=== PATIENT | male | born 1940 | race Caucasian/White ===

== ENCOUNTER 2018-07-27 00:38 | Emergency (ER) | payer MEDICARE ==
[~2018-07-27] VITALS: Ht 180.3 cm; Wt 99.8 kg
[~2018-07-27 00:38] MED LIST: ACET-2165 PO; ASA81 PO; CIPR-260 IVPB; PRO40 PO; ROCPM1 IV; TAMS-11 PO
[2018-07-27 00:40] VITALS: BP_SYST 137
[2018-07-27] MEDS ORDERED: IPRATROPIUM/ALBUTEROL SULFATE 3 ML AMPUL.NEB INH ONE (01:15)
[2018-07-27 01:17] LABS: BASOPHILS # (AUTO) 0.2 K/uL (0.0-0.2); BASOPHILS % (AUTO) 1.3 % (0.0-2.0); EOSINOPHILS # (AUTO) 0.1 K/uL (0.0-0.4); EOSINOPHILS % (AUTO) 0.5 % (0.0-4.0); LYMPHOCYTES # (AUTO) 0.3 K/uL (1.0-5.5); LYMPHOCYTES % (AUTO) 2.7 % (20.5-51.5); MEAN CORPUSCULAR HEMOGLOBIN 30 pg (27-31); MEAN CORPUSCULAR HGB CONC 33 % (32-36); MEAN CORPUSCULAR VOLUME 93 fL (79.0-98.0); MONOCYTES # (AUTO) 0.2 K/uL (0.0-1.0); MONOCYTES % (AUTO) 1.8 % (1.7-9.3); NEUTROPHILS # (AUTO) 11.9 K/uL (1.8-7.7); NEUTROPHILS % (AUTO) 93.7 % (40.0-70.0); PLATELET COUNT (AUTO) 181 K/uL (130-430); RED BLOOD CELL COUNT(AUTO) 4.95 MIL/uL (4.2-6.2); RED CELL DISTRIBUTION WIDTH 12.8 % (9.0-15.0); WHITE BLOOD COUNT (AUTO) 12.7 K/uL (4.8-10.8)
[2018-07-27 01:26] LABS: ANION GAP 13 (5-15); CALCIUM 8.7 mg/dL (8.4-11.0); CHLORIDE 104 mmol/L (98-107); CREATININE 1.31 mg/dL (0.55-1.30); GLUCOSE 148 mg/dL (70-99); POTASSIUM 3.5 mmol/L (3.5-5.1); SODIUM SERUM 140 mmol/L (136-145); UREA NITROGEN, BLOOD 14 mg/dL (8-21)
[2018-07-27 01:32] LABS: ALANINE AMINOTRANSFERASE 30 U/L (12-78); ALBUMIN 3.7 g/dL (3.4-4.8); ASPARTATE AMINOTRANSFERASE 22 U/L (10-37); TOTAL BILIRUBIN 1.9 mg/dL (0.0-1.0)
[2018-07-27] MEDS ORDERED: NACL 0.9% 1,000 ML IV ONE (01:45)
[2018-07-27] MEDS ORDERED: methylPREDNISolone SOD SUCC/PF 62.5 MG/ML VIAL IVP ONE (01:45)
[2018-07-27] MEDS ORDERED: LEVOFLOXACIN 500 MG TABLET PO ONE (01:45)
[2018-07-27 02:23] VITALS: BP_SYST 133
== END 2018-07-27 02:23 | disposition home or self-care (01) ==
LOC: SED 00:38
DX: J44.9 Chronic obstructive pulmonary disease, unspecified (principal); N17.9 Acute kidney failure, unspecified; Z79.899 Other long term (current) drug therapy; Z88.2 Allergy status to sulfonamides; Z87.891 Personal history of nicotine dependence
CPT/HCPCS: 36415; 71045; 80053; 83880; 85025; 94640; 96374; 99285; J2930; J7030; J7620

== ENCOUNTER 2019-04-02 20:50 | Emergency (ER) | payer MEDICARE ==
[~2019-04-02] VITALS: Ht 177.8 cm; Wt 90.7 kg
[2019-04-02 21:06] VITALS: BP_SYST 150
--- NOTE | 2019-04-02 21:10 | NUR ---
Patient to ER bed 04 for evaluation. Side rails up. Report given to Magdaleno BROWN.
--- NOTE | 2019-04-02 21:35 | NUR ---
Pt BIB to ED C/O sudden onset of epistaxis of left nostril that began at about 7:30PM today. Pt reports he was at the library when nosebleed started. He denies modifying factors. He was concerned because his brother had nosebleed before he . He states he does not usually have nosebleeds. He has had a dry cough for the past few days. No other injuries and or complaints noted. VSS no s/s of acute distress. Resting on gurney with rails up
--- NOTE | 2019-04-02 21:59 | NUR ---
Dr. Wu bedside for Pt eval
[2019-04-02 22:37] LABS: HEMOGLOBIN 14.8 g/dL (14.0-18.0); MEAN CORPUSCULAR HEMOGLOBIN 30 pg (27-31); MEAN CORPUSCULAR HGB CONC 34 % (32-36); MEAN CORPUSCULAR VOLUME 91 fL (79.0-98.0); NEUTROPHILS % (AUTO) 65.1 % (40.0-70.0); PLATELET COUNT (AUTO) 181 K/uL (130-430); RED BLOOD CELL COUNT(AUTO) 4.86 MIL/uL (4.2-6.2)
[2019-04-02 22:38] LABS: BASOPHILS # (AUTO) 0.1 K/uL (0.0-0.2); EOSINOPHILS # (AUTO) 0.3 K/uL (0.0-0.4); EOSINOPHILS % (AUTO) 3.1 % (0.0-4.0); LYMPHOCYTES % (AUTO) 21.8 % (20.5-51.5); MONOCYTES # (AUTO) 0.8 K/uL (0.0-1.0); NEUTROPHILS # (AUTO) 5.8 K/uL (1.8-7.7)
--- NOTE | 2019-04-02 22:40 | NUR ---
Pt continue to have direct pressure applied to control epistaxis
[2019-04-02 22:41] LABS: PROTHROMBIN TIME 9.9 SECS (9.5-12.5)
[2019-04-02] MEDS ORDERED: SILVER NITRATE APPLICATOR 1 STICK STICK..EA. TP ONE ×2 (23:15→23:34)
[2019-04-02] MEDS ORDERED: PHENYLEPHRINE HCL 0.5% NASAL 15 ML NASPR NS PRN (23:30)
--- NOTE | 2019-04-02 23:59 | NUR ---
Pt continue to have bedside. VSS no s/s of acute distress. While, pressure is moderately effective
--- NOTE | 2019-04-03 00:05 | NUR ---
Dr. Wu bedside for precedure
[2019-04-03 00:50] VITALS: BP_SYST 142
--- NOTE | 2019-04-03 00:50 | NUR ---
Patient given written and verbal discharge instructions and verbalizes understanding. ER MD discussed with patient the results and treatment provided. Patient in stable condition. ID arm band removed. Patient educated on pain management and to follow up with PMD. Pain Scale 0/10. Opportunity for questions provided and answered.
== END 2019-04-03 00:50 | disposition home or self-care (01) ==
LOC: SED 20:50
DX: R04.0 Epistaxis (principal); J44.9 Chronic obstructive pulmonary disease, unspecified; Z79.82 Long term (current) use of aspirin; Z79.899 Other long term (current) drug therapy; Z88.2 Allergy status to sulfonamides
CPT/HCPCS: 36415; 85025; 85610-TC; 99284